=== PATIENT | male | born 1945 | race Caucasian/White ===

== ENCOUNTER 2021-07-20 02:35 | Observation (INO) ==
[2021-07-20] MEDS ORDERED: Perflutren Lipid Microsphere 1.3 ML in 0.9 % Sodium Chloride 8.7 ML IVP PRN (05:24)
[2021-07-20] MEDS ORDERED: Acetaminophen 325 MG TABLET PO PRN (05:49)
[2021-07-20] MEDS ORDERED: Naloxone 0.4 MG/ML INJ IVP PRN (05:49)
[2021-07-20] MEDS ORDERED: Ondansetron 4 MG/2 ML VIAL IVP PRN (05:49)
[2021-07-20 05:51] LABS: Basophils % 0.4 %; Eosinophils % 0.4 %; Hematocrit 32.8 % (37.5-50.1); Hemoglobin 10.7 g/dL (12.9-16.9); Immature Granulocytes % 1.1 % (0-4); Lymphocytes # 1.3 K/mcL (0.6-4.6); Lymphocytes % 13.8 %; Mean Corpuscular HGB Conc 32.6 g/dL (31.6-35.5); Mean Corpuscular Hemoglobin 27.6 pg (28.0-33.3); Mean Corpuscular Volume 84.8 fL (83.0-100.0); Mean Platelet Volume 8.5 fL (9.4-12.4); Monocytes # 0.6 K/mcL (0.0-1.3); Monocytes % 6.7 %; Neutrophils # 7.5 K/mcL (1.6-8.9); Platelet Count 261 K/mcL (140-400); Red Blood Count 3.87 M/mcL (4.19-5.50); Red Cell Distribution Width 14.8 % (11.5-14.5); Segmented Neutrophils % 77.6 %; White Blood Count 9.6 K/mcL (4.3-11.1)
[2021-07-20] MEDS ORDERED: Morphine Sulfate 2 MG/ML SYRINGE IVP PRN (05:57)
[2021-07-20] MEDS ORDERED: Nitroglycerin 0.4 MG TAB.SUBL SL PRN (05:57)
[2021-07-20 06:11] LABS: Iron 32 mcg/dL (65-175)
[2021-07-20 06:19] LABS: Albumin 2.9 g/dL (3.5-5.7); Albumin/Globulin Ratio 1.1 (1.1-2.2); Bilirubin,Total 0.7 mg/dL (0.3-1.0); Calcium 8.1 mg/dL (8.6-10.3); Globulin 2.6 g/dL (2.4-3.5); Magnesium 1.6 mg/dL (1.6-2.6); Potassium 3.3 mEq/L (3.5-5.1); Total Protein 5.5 g/dL (6.4-8.9); Troponin I 0.05 ng/mL (< 0.04)
[2021-07-20] MEDS ORDERED: *HR* Heparin 5,000 UNIT/ML VIAL IVP PRN ×2 (06:25)
[2021-07-20] MEDS ORDERED: *HR* Heparin 5,000 UNIT/ML VIAL IVP ONE (06:25)
[2021-07-20 06:26] LABS: Ferritin 371 ng/mL (20-250)
[2021-07-20 06:31] LABS: Folate 4.4 ng/mL (3.0-16.0)
[2021-07-20 06:33] LABS: Vitamin B12 > 1500 pg/mL (250-1100)
[2021-07-20] MEDS ORDERED: Albumin 25% 25gram/100mL 25 GM/100 ML IV.SOLN IVPB ONE ×2 (06:43→08:44)
[2021-07-20] MEDS ORDERED: Calcium Gluconate 1gm/50mL 1 GM/50 ML BAG IVPB ONE ×2 (06:45→09:53)
[2021-07-20] MEDS: Heparin 25,000UNIT/250ML 1/2NS 25,000 UNIT/250 ML IV.SOLN IVC SCH (07:25)
[2021-07-20] MEDS: Aspirin Enteric Coated 81 MG Tablet PO SCH (09:46)
[2021-07-20 11:07] LABS: INR 1.3; Prothrombin Time 14.7 Seconds (9.4-12.1)
[2021-07-20 11:18] LABS: Activated Partial Thrombo Time 121.3 Seconds (26.0-36.0)
[2021-07-20 11:20] LABS: Troponin I 0.04 ng/mL (< 0.04); Uric Acid 13.9 mg/dL (2.3-7.6)
[2021-07-20] MEDS ORDERED: Famotidine 20 MG/2 ML VIAL IVP SCH (18:00)
[2021-07-21 03:37] LABS: Hematocrit 30.7 % (37.5-50.1); Hemoglobin 10.1 g/dL (12.9-16.9); Mean Corpuscular HGB Conc 32.9 g/dL (31.6-35.5); Mean Corpuscular Hemoglobin 28.3 pg (28.0-33.3); Mean Platelet Volume 8.5 fL (9.4-12.4); Platelet Count 256 K/mcL (140-400); Red Blood Count 3.57 M/mcL (4.19-5.50); Red Cell Distribution Width 14.8 % (11.5-14.5); White Blood Count 10.3 K/mcL (4.3-11.1)
[2021-07-21 04:13] LABS: Calcium 7.9 mg/dL (8.6-10.3); Chol/HDL Ratio 2.6 (0-4.9); Potassium 3.1 mEq/L (3.5-5.1)
[2021-07-21] MEDS: Aspirin Enteric Coated 81 MG Tablet PO SCH (09:05)
[2021-07-21] MEDS: Metoprolol XL (24 HR) Succ 25 MG TAB.ER.24H PO SCH (09:07)
[2021-07-21] MEDS: Famotidine 20 MG/2 ML VIAL IVP SCH (09:09)
[2021-07-21] MEDS ORDERED: Calcium Gluconate 1gm/50mL 1 GM/50 ML BAG IVPB ONE (10:05)
[2021-07-21] MEDS: Cholecalciferol (D-3) 1,000 UNIT (25MCG) TABLET PO SCH (15:00)
[2021-07-21] MEDS: *HR* Heparin 5,000 UNIT/ML VIAL SQ SCH (18:35)
[2021-07-21] MEDS: Heparin 25,000UNIT/250ML 1/2NS 25,000 UNIT/250 ML IV.SOLN IVC SCH (19:20)
[2021-07-22] MEDS: *HR* Heparin 5,000 UNIT/ML VIAL SQ SCH (06:33)
[2021-07-22 07:08] VITALS: O2SAT 100
[2021-07-22] MEDS: Famotidine 20 MG/2 ML VIAL IVP SCH (08:57)
[2021-07-22] MEDS: Aspirin Enteric Coated 81 MG Tablet PO SCH (08:58)
[2021-07-22] MEDS: Metoprolol XL (24 HR) Succ 25 MG TAB.ER.24H PO SCH (08:58)
[2021-07-22] MEDS: Cholecalciferol (D-3) 1,000 UNIT (25MCG) TABLET PO SCH (08:59)
[2021-07-22 10:48] LABS: % Iron Saturation 27 % (20-55); Transferrin 84 mg/dL (200-400)
[2021-07-22 12:05] VITALS: TEMP 97.6
[2021-07-22 12:20] VITALS: BP 108/71; PULSE 72
== END 2021-07-22 17:11 | disposition home or self-care (01) ==
LOC: 3ANU
PROVIDERS: ADMIT Student in an Organized Health Care Education/Training Program; ATTEND Student in an Organized Health Care Education/Training Program